=== PATIENT | male | born 1975 | race Caucasian/White ===

== ENCOUNTER 2017-05-25 20:10 | Observation (INO) | payer OTHER ==
[~2017-05-25] VITALS: Ht 167.6 cm; Wt 78.2 kg
[2017-05-25 20:30] VITALS: BP 123/74; PULSE 78; RESP 18; TEMP 98.3; O2SAT 97
--- NOTE | 2017-05-25 20:36 | PD ---
HPI Chief Complaint: Accidental ingestion of toxic alcohol Time Seen by Provider: 20:21 Travel History International Travel<30 days: No Contact w/Intl Traveler<30days: No History of Present Illness HPI 41-year-old male patient presents to the ER today because he states that he had accidentally taken a gulp of denatured alcohol. He states that somebody had put into a drink bottle and he thought it was water, and took a gulp. He denies drinking any more than that. He complains of stomach irritation and nausea. He denies any chest pains, trouble breathing, vision change, or any other symptoms. He had talked to poison control and was told to come into the ER for further evaluation. Modifying Factors: None Associated Signs & Symptoms: Accidental ingestion of denatured alcohol Risk Factors: None PFSH Social History Tobacco Use: No Allergies-Medications (Allergen,Severity, Reaction): Coded Allergies: povidone-iodine (Verified Allergy, Unknown, 05/25/17) soap (Verified Allergy, Unknown, 05/25/17) Review of Systems Except as stated in HPI: all other systems reviewed are Neg Physical Exam Narrative GENERAL: Well-developed middle-age male patient currently in mild distress. Awake and oriented 3. SKIN: Focused skin assessment warm/dry. HEAD: Atraumatic. Normocephalic. EYES: Pupils equal and round. No scleral icterus. No injection or drainage. ENT: No nasal bleeding or discharge. Mucous membranes pink and moist. NECK: Trachea midline. No JVD. CARDIOVASCULAR: Regular rate and rhythm. No murmur appreciated. RESPIRATORY: No accessory muscle use. Clear to auscultation. Breath sounds equal bilaterally. GASTROINTESTINAL: Abdomen soft, non-tender, nondistended. Hepatic and splenic margins not palpable. MUSCULOSKELETAL: No obvious deformities. No clubbing. No cyanosis. No edema. NEUROLOGICAL: Awake and alert. No obvious cranial nerve deficits. Motor grossly within normal limits. Normal speech. PSYCHIATRIC: Appropriate mood and affect; insight and judgment normal. Data Data Last Documented VS Vital Signs Date Time Temp Pulse Resp B/P (MAP) Pulse Ox O2 Delivery O2 Flow Rate FiO2 05/25/17 20:48 85 20 113/83 (93) 93 05/25/17 20:30 98.3 Room Air Orders Orders Electrocardiogram (05/25/17 20:21) Complete Blood Count With Diff (05/25/17 20:21) Comprehensive Metabolic Panel (05/25/17 20:21) Prothrombin Time / Inr (Pt) (05/25/17 20:21) Act Partial Throm Time (Ptt) (05/25/17 20:21) Osmolality,Serum (05/25/17 20:21) Osmolality, Urine (05/25/17 20:21) Urinalysis - C+S If Indicated (05/25/17 20:21) Blood Glucose (05/25/17 20:21) Iv Access Insert/Monitor (05/25/17 20:21) Ecg Monitoring (05/25/17 20:21) Oximetry (05/25/17 20:21) Call Poison Control (05/25/17 20:21) Alcohol (Ethanol) (05/25/17 20:21) Arterial Blood Gas (Abg) (05/25/17 20:25) Sodium Chlor 0.9% 1000 Ml Inj (Ns 1000 M (05/25/17 20:45) Thiamine Inj (Thiamine Inj) (05/25/17 21:00) Pyridoxine Inj (Vitamin B6 Inj) (05/25/17 21:00) Ondansetron Inj (Zofran Inj) (05/25/17 21:00) Folic Acid Inj (Folvite Inj) (05/25/17 21:15) Admit Order (Ed Use Only) (05/25/17 21:47) Place In Observation (05/25/17 ) Vital Signs (Adult) Q4H (05/25/17 21:47) Neuro Checks Q4H (05/25/17 21:47) Activity Oob With Assistance (05/25/17 21:47) Payroll Representative / Telemetry .CONTINUOUS (05/25/17 21:47) Intake + Output SMILEY.QSHIFT (05/25/17 21:47) Diet Regular Basic (05/25/17 Dinner) Sodium Chlor 0.9% 1000 Ml Inj (Ns 1000 M (05/25/17 21:47) Sodium Chloride 0.9% Flush (Ns Flush) (05/25/17 22:00) Sodium Chloride 0.9% Flush (Ns Flush) (05/26/17 09:00) Acetaminophen (Tylenol) (05/25/17 22:00) Prochlorperazine Supp (Compazine Supp) (05/25/17 22:00) Naloxone Inj (Narcan Inj) (05/25/17 22:00) Osmolality,Serum (05/26/17 02:30) Alcohol (Ethanol) (05/26/17 02:30) Basic Metabolic Panel (Bmp) (05/26/17 02:30) Labs Laboratory Tests Test 05/25/17 20:30 05/25/17 20:56 05/25/17 21:40 White Blood Count 8.2 TH/MM3 Red Blood Count 5.79 MIL/MM3 Hemoglobin 16.9 GM/DL Hematocrit 50.6 % Mean Corpuscular Volume 87.4 FL Mean Corpuscular Hemoglobin 29.2 PG Mean Corpuscular Hemoglobin Concent 33.4 % Red Cell Distribution Width 15.0 % Platelet Count 119 TH/MM3 Mean Platelet Volume 11.4 FL Neutrophils (%) (Auto) 61.4 % Lymphocytes (%) (Auto) 25.5 % Monocytes (%) (Auto) 9.5 % Eosinophils (%) (Auto) 2.7 % Basophils (%) (Auto) 0.9 % Neutrophils # (Auto) 5.0 TH/MM3 Lymphocytes # (Auto) 2.1 TH/MM3 Monocytes # (Auto) 0.8 TH/MM3 Eosinophils # (Auto) 0.2 TH/MM3 Basophils # (Auto) 0.1 TH/MM3 CBC Comment DIFF FINAL Differential Comment Prothrombin Time 10.8 SEC Prothromb Time International Ratio 1.1 RATIO Activated Partial Thromboplast Time 25.2 SEC Blood Urea Nitrogen 11 MG/DL Creatinine 0.97 MG/DL Random Glucose 87 MG/DL Total Protein 8.8 GM/DL Albumin 4.0 GM/DL Calcium Level 8.9 MG/DL Alkaline Phosphatase 96 U/L Aspartate Amino Transf (AST/SGOT) 20 U/L Alanine Aminotransferase (ALT/SGPT) 27 U/L Total Bilirubin 0.9 MG/DL Sodium Level 140 MEQ/L Potassium Level 3.9 MEQ/L Chloride Level 105 MEQ/L Carbon Dioxide Level 29.0 MEQ/L Anion Gap 6 MEQ/L Estimat Glomerular Filtration Rate 85 ML/MIN Ethyl Alcohol Level LESS THAN 3 MG/DL Blood Gas Puncture Site RT RADIAL Blood Gas Patient Temperature 98.6 Blood Gas HCO3 24 mmol/L Blood Gas Base Excess 0.8 mmol/L Blood Gas Oxygen Saturation 94 % Arterial Blood pH 7.50 Arterial Blood Partial Pressure CO2 31 mmHG Arterial Blood Partial Pressure O2 112 mmHG Arterial Blood Oxygen Content 21.1 Vol % Arterial Blood Carboxyhemoglobin 3.8 % Arterial Blood Methemoglobin 1.2 % Blood Gas Hemoglobin 15.9 G/DL Oxygen Delivery Device ROOM AIR Blood Gas Inspired Oxygen 21 % Urine Collection Type CLEAN CATCH Urine Color YELLOW Urine Turbidity CLEAR Urine pH 6.0 Urine Specific [place] GREATER/EQUAL 1.030 Urine Protein NEG mg/dL Urine Glucose (UA) NEG mg/dL Urine Ketones NEG mg/dL Urine Occult Blood NEG Urine Nitrite NEG Urine Bilirubin NEG Urine Urobilinogen 0.2 MG/DL Urine Leukocyte Esterase NEG Urine RBC 0-3 /hpf Urine WBC 0-2 /hpf Urine Squamous Epithelial Cells 0-5 /hpf Urine Hyaline Casts 0-2 /lpf Urine Mucus MOD /lpf Microscopic Urinalysis Comment CULT NOT INDICATED MDM Medical Decision Making Medical Screen Exam Complete: Yes Emergency Medical Condition: Yes Medical Record Reviewed: Yes Interpretation(s) EKG shows NSR, no ST elevation or depression, and no arrhythmias. No significant T-wave inversions. Laboratory Tests Test 05/25/17 20:30 05/25/17 20:56 05/25/17 21:40 Platelet Count 119 TH/MM3 (150-450) Mean Platelet Volume 11.4 FL (7.0-11.0) Monocytes (%) (Auto) 9.5 % (0.0-8.0) Total Protein 8.8 GM/DL (6.4-8.2) Estimat Glomerular Filtration Rate 85 ML/MIN (>89) Arterial Blood pH 7.50 (7.380-7.420) Arterial Blood Partial Pressure CO2 31 mmHG (38-42) Arterial Blood Oxygen Content 21.1 Vol % (12.0-20.0) Urine Mucus MOD /lpf (OCC) Differential Diagnosis Accidental toxic alcohol ingestion Narrative Course Considering the ingestion, the worrisome toxic substances would be methanol, however there could also be additives including isopropyl alcohol, acetone, and other types of alcohol mixed in. The case was discussed with poison control and this is a small amount of ingestion. It is in any case, it is too late to give activated charcoal in this case, patient had taken the alcohol about 40 minutes prior to arrival. Poison control did recommend folate, pyridoxine, and thiamine IV. They recommend a follow-up alcohol and osmole level 6 hours later as well. At this point, patient is admitted to the hospitalist service as an observation for recheck. Diagnosis Primary Impression: Toxic effect of ethanol, accidental (unintentional), initial encounter Admitting Information Admitting Physician Requests: Admit Wai Tran MD May 25, 2017 20:36
[2017-05-25 20:45] LABS: BASOPHIL # 0.1 TH/MM3 (0-0.2); BASOPHIL % 0.9 % (0.0-2.0); EOSINOPHIL # 0.2 TH/MM3 (0-0.4); EOSINOPHIL % 2.7 % (0.0-4.0); HEMATOCRIT 50.6 % (39.0-51.0); HEMOGLOBIN 16.9 GM/DL (13.0-17.0); LYMPH % 25.5 % (9.0-44.0); LYMPHOCYTE # 2.1 TH/MM3 (1.0-4.8); MEAN CELL VOLUME 87.4 FL (80.0-100.0); MEAN CORPUSCULAR HEMOGLOBIN 29.2 PG (27.0-34.0); MEAN CORPUSCULAR HGB CONC 33.4 % (32.0-36.0); MEAN PLATELET VOLUME 11.4 FL (7.0-11.0); MONO % 9.5 % (0.0-8.0); MONOCYTE # 0.8 TH/MM3 (0-0.9); NEUT % 61.4 % (16.0-70.0); PLATELET COUNT 119 TH/MM3 (150-450); RED BLOOD COUNT 5.79 MIL/MM3 (4.50-5.90); WHITE BLOOD COUNT 8.2 TH/MM3 (4.0-11.0)
[2017-05-25] MEDS ORDERED: SODIUM CHLOR 0.9% 1000 ML INJ 1,000 ML IV ONE (20:45)
[2017-05-25 20:48] VITALS: BP 113/83; PULSE 85; RESP 20; O2SAT 93
[2017-05-25 21:00] VITALS: BP 132/84; PULSE 74; RESP 20; O2SAT 98
[2017-05-25] MEDS ORDERED: ONDANSETRON HCL 4 MG/2 ML VIAL IV PUSH ONE (21:00)
[2017-05-25] MEDS ORDERED: PYRIDOXINE HCL 100 MG/ML VIAL IV ONE (21:00)
[2017-05-25] MEDS ORDERED: THIAMINE INJ 100 MG in SODIUM CHLORIDE 0.9% INJ 100 ML IV ONE (21:00)
[2017-05-25 21:03] LABS: TOTAL PROTEIN 8.8 GM/DL (6.4-8.2)
[2017-05-25 21:04] LABS: ALKALINE PHOSPHATASE 96 U/L (45-117)
[2017-05-25 21:12] LABS: INTERNATIONAL NORMALIZED RATIO 1.1 RATIO; PROTHROMBIN TIME - PATIENT 10.8 SEC (9.8-11.6)
[2017-05-25] MEDS ORDERED: FOLIC ACID IV ONE ×2 (21:15)
[2017-05-25] MEDS ORDERED: WATER IV ONE ×2 (21:15)
[2017-05-25] MEDS ORDERED: DEXTROSE 5% IV ONE ×2 (21:15)
[2017-05-25 21:29] LABS: BLOOD UREA NITROGEN 11 MG/DL (7-18); CREATININE 0.97 MG/DL (0.60-1.30); GLOMERULAR FILTRATION RATE 85 ML/MIN (>89); GLUCOSE,RANDOM 87 MG/DL (74-106)
[2017-05-25 21:30] LABS: ALT (GPT) 27 U/L (12-78); AST (GOT) 20 U/L (15-37); CALCIUM 8.9 MG/DL (8.5-10.1)
[2017-05-25 21:31] LABS: SODIUM (NA) 140 MEQ/L (136-145); TOTAL BILIRUBIN ADULT 0.9 MG/DL (0.2-1.0)
[2017-05-25 21:32] LABS: CHLORIDE 105 MEQ/L (98-107)
[2017-05-25 21:48] LABS: BILIRUBIN, URINE NEG (NEG); BLOOD, URINE NEG (NEG); GLUCOSE,URINE NEG (NEG); KETONE, URINE NEG (NEG); NITRITE,URINE NEG (NEG); URINE COLOR YELLOW (YELLW/STRAW); URINE LEUKOCYTE ESTERASE NEG (NEG)
[2017-05-25 21:55] LABS: HYALINE CAST, URINE 0-2 /lpf (RARE); MUCUS URINE MOD /lpf (OCC); RBC, URINE 0-3 /hpf (0-3)
[2017-05-25 21:56] LABS: SQUAMOUS EPITHELIAL CELL URINE 0-5 /hpf (0-5)
[2017-05-25 21:57] LABS: WBC, URINE 0-2 /hpf (0-5)
[2017-05-25 22:00] VITALS: BP 133/90; PULSE 66; RESP 20; O2SAT 98
[2017-05-25] MEDS ORDERED: PROCHLORPERAZINE 25 MG SUPP RECTAL PRN (22:00)
[2017-05-25] MEDS ORDERED: NALOXONE HCL 0.4 MG/ML AMP IV PUSH PRN (22:00)
[2017-05-25] MEDS ORDERED: SODIUM CHLORIDE 0.9% FLUSH 10 ML FLUSH IV FLUSH PRN (22:00)
[2017-05-25] MEDS ORDERED: ACETAMINOPHEN 325 MG TAB PO PRN (22:00)
[2017-05-25] MEDS: SODIUM CHLOR 0.9% 1000 ML INJ 1,000 ML IV SCH (22:27)
[2017-05-25 23:00] VITALS: BP 134/94; PULSE 84; RESP 20; TEMP 98.4; O2SAT 99
[2017-05-26 00:10] VITALS: BP 139/82
[2017-05-26 00:35] VITALS: PULSE 68
[2017-05-26 02:57] LABS: CHLORIDE 109 MEQ/L (98-107); SODIUM (NA) 139 MEQ/L (136-145)
[2017-05-26 04:00] VITALS: BP 133/61; PULSE 60; RESP 20; TEMP 98; O2SAT 96
[2017-05-26 04:16] LABS: BICARBONATE 24.3 MEQ/L (21.0-32.0); BLOOD UREA NITROGEN 11 MG/DL (7-18); CALCIUM 7.8 MG/DL (8.5-10.1); CREATININE 0.99 MG/DL (0.60-1.30); GLOMERULAR FILTRATION RATE 83 ML/MIN (>89); GLUCOSE,RANDOM 123 MG/DL (74-106)
[2017-05-26] MEDS: SODIUM CHLOR 0.9% 1000 ML INJ 1,000 ML IV SCH (05:58)
--- NOTE | 2017-05-26 07:55 | EKG ---
Date Performed: 05/25/2017 Time Performed: 20:54:05 PTAGE: 41 years EKG: Sinus rhythm POSSIBLE RIGHT VENTRICULAR CONDUCTION DELAY BORDERLINE ECG NO PREVIOUS TRACING DOCTOR: Jame White Interpretating Date/Time 05/26/2017 07:54:01
[2017-05-26 08:06] VITALS: BP 120/58; PULSE 64; RESP 16; TEMP 97.7; O2SAT 95
[2017-05-26 08:43] LABS: BICARBONATE 26.8 MEQ/L (21.0-32.0); CALCIUM 8.4 MG/DL (8.5-10.1)
[2017-05-26] MEDS ORDERED: SODIUM CHLORIDE 0.9% FLUSH 10 ML FLUSH IV FLUSH SCH (09:00)
--- NOTE | 2017-05-26 11:23 | HHI.DCPOC ---
Discharge Care Plan Diagnosis: (1) Toxic effect of ethanol, accidental (unintentional), initial encounter Goals to Promote Your Health * To prevent worsening of your condition and complications * To maintain your health at the optimal level Directions to Meet Your Goals Take your medications as prescribed Follow your dietary instruction Follow activity as directed Keep your appointments as scheduled Take your immunizations and boosters as scheduled If your symptoms worsen call your PCP, if no PCP go to Urgent Care Center or Emergency Room Smoking is Dangerous to Your Health. Avoid second hand smoke Call the 24-hour hour crisis hotline for domestic abuse at Catherine Gleason MD May 26, 2017 11:23
--- NOTE | 2017-05-26 11:26 | HHI.HP ---
[facility] Service [facility] Primary Care Physician No Primary Care Physician Admission Diagnosis Accidental toxic alcohol ingestion Diagnoses: Chief Complaint: Accidental ingestion of alcohol Travel History International Travel<30 Days: No Contact w/Intl Traveler <30 Da: No Traveled to Known Affected Are: No History of Present Illness Patient is a 41-year-old gentleman with no past medical history of excellent to a goal of industrial-strength alcohol while working in a [employer] company. Patient thought it was water as someone had put the bottle near his water bottle. To go up and noted some burning irritation his stomach. 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 Patient been observed overnight. No issues otherwise. He is eating well. No new complaints today. Discharge plan discussed with patient will follow up with his Workmen's Comp. medical team Review of Systems Constitutional: DENIES: Diaphoretic episodes, Fatigue, Fever, Weight gain, Weight loss, Chills, Dizziness, Change in appetite, Night Sweats Endocrine: DENIES: Heat/cold intolerance, Polydipsia, Polyuria, Polyphagia Eyes: DENIES: Blurred vision, Diplopia, Eye inflammation, Eye pain, Vision loss , Photosensitivity, Double Vision Ears, nose, mouth, throat: DENIES: Tinnitus, Hearing loss, Vertigo, Nasal discharge, Oral lesions, Throat pain, Hoarseness, Ear Pain, Running Nose, Epistaxis, Sinus Pain, Toothache, Odynophagia Respiratory: DENIES: Apneas, Cough, Snoring, Wheezing, Hemoptysis, Sputum production, Shortness of breath Cardiovascular: DENIES: Chest pain, Palpitations, Syncope, Dyspnea on Exertion , PND, Lower Extremity Edema, Orthopnea, Claudication Gastrointestinal: DENIES: Abdominal pain, Black stools, Bloody stools, Constipation, Diarrhea, Nausea, Vomiting, Difficulty Swallowing, Anorexia Genitourinary: DENIES: Sexual dysfunction, Urinary frequency, Urinary incontinence, Urgency, Hematuria, Dysuria, Nocturia, Penile Discharge, Testicular Pain, Testicular Swelling Musculoskeletal: DENIES: Joint pain, Muscle aches, Stiffness, Joint Swelling, Back pain, Neck pain Integumentary: DENIES: Abnormal pigmentation, Nail changes, Pruritus, Rash Hematologic/lymphatic: DENIES: Bruising, Lymphadenopathy Immunologic/allergic: DENIES: Eczema, Urticaria Neurologic: DENIES: Abnormal gait, Headache, Localized weakness, Paresthesias, Seizures, Speech Problems, Tremor, Poor Balance Psychiatric: DENIES: Anxiety, Confusion, Mood changes, Depression, Hallucinations, Agitation, Suicidal Ideation, Homicidal Ideation, Delusions Except as stated in HPI: all other systems reviewed are Neg Past Family Social History Past Medical History Denies Past Surgical History Denies Reported Medications Denies Allergies: Coded Allergies: povidone-iodine (Verified Allergy, Unknown, 05/25/17) soap (Verified Allergy, Unknown, 05/25/17) Active Ordered Medications Reviewed in the EMR Family History Lives with his family Social History Patient smokes a pack a day, no alcohol Physical Exam Vital Signs Vital Signs Date Time Temp Pulse Resp B/P (MAP) Pulse Ox O2 Delivery O2 Flow Rate FiO2 05/26/17 08:06 97.7 64 16 120/58 (78) 95 05/26/17 04:00 98.0 60 20 133/61 (85) 96 05/26/17 00:35 68 05/26/17 00:10 84 20 139/82 (101) 98 05/25/17 23:00 98.4 84 20 134/94 (107) 99 05/25/17 22:00 66 20 133/90 (104) 98 05/25/17 21:00 74 20 132/84 (100) 98 05/25/17 20:48 85 20 113/83 (93) 93 05/25/17 20:48 85 20 93 05/25/17 20:30 98.3 78 18 123/74 (90) 97 Room Air Physical Exam GENERAL: This is a well-nourished, well-developed patient, in no apparent distress. SKIN: No rashes, ecchymoses or lesions. Cool and dry. HEAD: Atraumatic. Normocephalic. No temporal or scalp tenderness. EYES: Pupils equal round and reactive. Extraocular motions intact. No scleral icterus. No injection or drainage. ENT: Nose without bleeding, purulent drainage or septal hematoma. Throat without erythema, tonsillar hypertrophy or exudate. Uvula midline. Airway patent. NECK: Trachea midline. No JVD or lymphadenopathy. Supple, nontender, no meningeal signs. CARDIOVASCULAR: Regular rate and rhythm without murmurs, gallops, or rubs. RESPIRATORY: Clear to auscultation. Breath sounds equal bilaterally. No wheezes , rales, or rhonchi. GASTROINTESTINAL: Abdomen soft, non-tender, nondistended. No hepato-splenomegaly , or palpable masses. No guarding. MUSCULOSKELETAL: Extremities without clubbing, cyanosis, or edema. No joint tenderness, effusion, or edema noted. No calf tenderness. Negative Homans sign bilaterally. NEUROLOGICAL: Awake and alert. Cranial nerves II through XII intact. Motor and sensory grossly within normal limits. Five out of 5 muscle strength in all muscle groups. Normal speech. Laboratory Laboratory Tests Test 05/25/17 20:30 05/25/17 20:56 05/25/17 21:40 05/26/17 02:30 White Blood Count 8.2 Red Blood Count 5.79 Hemoglobin 16.9 Hematocrit 50.6 Mean Corpuscular Volume 87.4 Mean Corpuscular Hemoglobin 29.2 Mean Corpuscular Hemoglobin Concent 33.4 Red Cell Distribution Width 15.0 Platelet Count 119 Mean Platelet Volume 11.4 Neutrophils (%) (Auto) 61.4 Lymphocytes (%) (Auto) 25.5 Monocytes (%) (Auto) 9.5 Eosinophils (%) (Auto) 2.7 Basophils (%) (Auto) 0.9 Neutrophils # (Auto) 5.0 Lymphocytes # (Auto) 2.1 Monocytes # (Auto) 0.8 Eosinophils # (Auto) 0.2 Basophils # (Auto) 0.1 CBC Comment DIFF FINAL Differential Comment Prothrombin Time 10.8 Prothromb Time International Ratio 1.1 Activated Partial Thromboplast Time 25.2 Blood Urea Nitrogen 11 11 Creatinine 0.97 0.99 Random Glucose 87 123 Total Protein 8.8 Albumin 4.0 Calcium Level 8.9 7.8 Alkaline Phosphatase 96 Aspartate Amino Transf (AST/SGOT) 20 Alanine Aminotransferase (ALT/SGPT) 27 Total Bilirubin 0.9 Sodium Level 140 139 Potassium Level 3.9 3.4 Chloride Level 105 109 Carbon Dioxide Level 29.0 24.3 Anion Gap 6 6 Estimat Glomerular Filtration Rate 85 83 Serum Osmolality 300 297 Ethyl Alcohol Level LESS THAN 3 LESS THAN 3 Blood Gas Puncture Site RT RADIAL Blood Gas Patient Temperature 98.6 Blood Gas HCO3 24 Blood Gas Base Excess 0.8 Blood Gas Oxygen Saturation 94 Arterial Blood pH 7.50 Arterial Blood Partial Pressure CO2 31 Arterial Blood Partial Pressure O2 112 Arterial Blood Oxygen Content 21.1 Arterial Blood Carboxyhemoglobin 3.8 Arterial Blood Methemoglobin 1.2 Blood Gas Hemoglobin 15.9 Oxygen Delivery Device ROOM AIR Blood Gas Inspired Oxygen 21 Urine Collection Type CLEAN CATCH Urine Color YELLOW Urine Turbidity CLEAR Urine pH 6.0 Urine Specific [place] GREATER/EQUAL 1.030 Urine Protein NEG Urine Glucose (UA) NEG Urine Ketones NEG Urine Occult Blood NEG Urine Nitrite NEG Urine Bilirubin NEG Urine Urobilinogen 0.2 Urine Leukocyte Esterase NEG Urine RBC 0-3 Urine WBC 0-2 Urine Squamous Epithelial Cells 0-5 Urine Hyaline Casts 0-2 Urine Mucus MOD Microscopic Urinalysis Comment CULT NOT INDICATED Urine Osmolality 858 Test 05/26/17 08:15 Blood Urea Nitrogen 13 Creatinine 1.00 Random Glucose 104 Calcium Level 8.4 Sodium Level 139 Potassium Level 4.2 Chloride Level 108 Carbon Dioxide Level 26.8 Anion Gap 4 Estimat Glomerular Filtration Rate 82 Serum Osmolality 296 Result Diagram: 05/25/17202905/26/17 0815 Assessment and Plan Problem List: (1) Toxic effect of ethanol, accidental (unintentional), initial encounter ICD Code: T51.0X1A - Toxic effect of ethanol, accidental (unintentional), initial encounter Status: Acute Plan: Patient electrolytes appear stable at this time. No further discomfort in swallowing. Discharge plans discussed with patient and nursing team Assessment and Plan Discharge home Activity unrestricted, follow-up with workman's comp No new prescriptions Catherine Gleason MD May 26, 2017 11:26
== END 2017-05-26 12:21 | disposition home or self-care (01) ==
LOC: PHED 20:10 → PHEDA 21:48 → PH3B 05-26 00:18
PROVIDERS: ADMIT Hospitalist; ATTEND Hospitalist
DX: T51.0X1A Toxic effect of ethanol, accidental (unintentional), initial encounter (principal); R10.9 Unspecified abdominal pain; R11.0 Nausea; F17.200 Nicotine dependence, unspecified, uncomplicated
CPT/HCPCS: 36600; 80048; 80053; 80307; 81001; 82805; 83930; 83935; 85025; 85610; 85730; 93005; 96365; 96368; 96375; 96376; 99285; G0378; J2405; J3411; J3415; J7030